=== PATIENT | female | born 1975 | race Caucasian/White ===

== ENCOUNTER → 2018-10-03 08:01 | Outpatient (CLI) | payer BC, SELFPAY ==
[2018-09-20 09:46] VITALS: BMI 43.4
--- NOTE | 2018-10-03 08:04 | BI_ITS ---
MAMMOGRAPHY - BILATERAL SCREENING REASON FOR EXAM: Female, 43 years old. Routine annual screening examination. PERTINENT HISTORY: Aunt with breast cancer. TECHNIQUE: Digital bilateral breast jose guadalupe (3D mammographic acquisition) in the CC and MLO projections. 2-D mediolateral oblique (MLO) and craniocaudad (CC) views of both breasts were obtained. CAD: Full Field Digital Mammography with Computer Added Detection was performed. COMPARISON: Comparison is made with prior study dated October 01, 2017 and August 31, 2016. FINDINGS: Breast Composition: There are scattered areas of fibroglandular density. There are no dominant masses or suspicious calcifications. Stable benign appearing bilateral axillary lymph nodes. No other significant abnormalities are identified. There has been no significant change since the prior study. BI/SCREENING MAMM (CAD), BILAT IMPRESSION: Stable bilateral screening mammogram. Yearly follow-up mammogram recommended. (A) ASSESSMENT CATEGORY: BIRADS Category 2: Benign. A letter regarding these results will be sent to the patient by the facility within 30 days. Approximately 10% of breast cancers are not detected by mammography. A normal mammogram should not delay biopsy of a clinically suspicious abnormality. [id number] Electronically Signed: Yehuda Michaels MD at 13:09 EST Tel [phone], Service support ,
--- OUTSIDE RECORDS SUMMARY | 2018-11-26 07:43 | XMS RPT_ITS ---
:1975 Author Organization [facility] Care Team Providers Name Role Phone ANTWON HIRSCH Attending Unavailable ANTWON HIRSCH Referring Unavailable Joanie Avelar Attending Unavailable Silas Andino Referring Unavailable Joanie Avelar Attending Unavailable Joanie Avelar Referring Unavailable Silas Andino Primary Care Unavailable PROBLEMS PROBLEMS DATE TYPE CONDITION / CODE ATTENDING STATUS SOURCE 04/28/2018 Active Essential NA Active [facility] (primary) Main [place] hypertension / Repository I10(ICD-10) PROCEDURES PROCEDURES No Procedure Records FoundRESULTS RESULTS SCREENING MAMM (CAD), Observed: 10/03/2018 Status: F Source: NED BILAT 8:04 AM [facility] REPOSITORY [facility] Imaging Services [address] [place] [address] SCREENING MAMM (CAD), BILAT MR#: [id number] Acct: [id number] Name: JOVANA MINER Rep #: [id number] : 1975 F 43 From: Yehuda Michaels MD PCP: Silas Andino MD Status: REG CLI Study: SCREENING MAMM (CAD), BILAT Date of Exam: 10/03/18 Exam# [id number] Ordering Dr: Joanie Avelar MD MAMMOGRAPHY - BILATERAL SCREENING REASON FOR EXAM: Female, 43 years old. Routine annual screening examination. PERTINENT HISTORY: Aunt with breast cancer. TECHNIQUE: Digital bilateral breast jose guadalupe (3D mammographic acquisition) in the CC and MLO projections. 2-D mediolateral oblique (MLO) and craniocaudad (CC) views of both breasts were obtained. CAD: Full Field Digital Mammography with Computer Added Detection was performed. COMPARISON: Comparison is made with prior study dated October 01, 2017 and August 31, 2016. FINDINGS: Breast Composition: There are scattered areas of fibroglandular density. There are no dominant masses or suspicious calcifications. Stable benign appearing bilateral axillary lymph nodes. No other significant abnormalities are identified. There has been no significant change since the prior study. BI/SCREENING MAMM (CAD), BILAT IMPRESSION: Stable bilateral screening mammogram. Yearly follow-up mammogram recommended. (A) ASSESSMENT CATEGORY: BIRADS Category 2: Benign. A letter regarding these results will be sent to the patient by the facility within 30 days. Approximately 10% of breast cancers are not detected by mammography. A normal mammogram should not delay biopsy of a clinically suspicious abnormality. [id number] Electronically Signed: Yehuda Michaels MD at 13:09 EST Tel [phone], Service support , CC: Joanie Avelar MD; Silas Andino MD Television Newscast Director: Signed MACHINIST OFFICE VISIT Observed: 09/29/2018 Status: F Source: NED REPORT 4:55 AM [facility] Women[facility] [address] [place] [address] OFFICE VISIT Date of Service: 09/20/18 MR#: [id number] Acct: [id number] Name: JOVANA MINER Rep #: [id number] : 1975 Provider: Joanie Avelar MD Age/Sex: 43/F Location: [facility] Status: Signed Intake Vital Signs09/20/18 Height 5 ft 6 in 09/20/18 Weight: 269 lb 09/20/18 Body Mass Index (BMI) 43.4 09/20/18 Blood Pressure 160/100 H Intake Visit Reasons: ANNUAL Chief Complaint: est annual [facility] Required: No Is patient in pain?: No Allergies adhesive Allergy (Verified 09/20/18 09:47) Rash peanut Allergy (Verified 09/20/18 09:47) Hives strawberry [[place]] Allergy (Verified 09/20/18 09:47) Hives Medications hydrochlorothiazide 12.5 mg capsule 12.5 mg PO DAILY 09/20/18 [History Confirmed 09/20/18] Is last menstrual period known: Yes Last Menstral Period: 08/30/18 Post menopausal: No Patient : No : No PFSH Medical History Hypertension (Chronic) Surgical History History of delivery (Acute) Hx of cholecystectomy (Acute) Social History Smoking Status: Former smoker alcohol intake: never substance use type: does not use caffeine: Yes what type of physical activity do you participate in: walking seatbelt use: always do you feel safe at home: Yes Pregancy History 4 Elective abortions Hx Para 2 Spontaneous abortions Past Pregnancies Del. DatName GA/WeeksOutcome Route [facility] LocaProviderFOB e ht en tn Unknown 2011 Garcia nah Unknown 2013 Cat herine HPI ANNUAL: Details: JOVANA MINER is a 43 year old who presents for annual exam. Last PAP: 2017 normal History of abnormal PAP: no Last mammogram: due History of abnormal mammogram: no Colon cancer screening: na Other preventative health care screenings: per PCP Female Reproductive History Last Menstral Period: 08/30/18 Questions: Metorrhagia: No, Sexually active: Yes, Dyspareunia: No, PCB: No Menopausal Symptoms: No hot flashes, No night sweats, No weight change, No mood changes, No difficulty concentrating, No sleep problems, No change in libido ROS Const Constitutional: Reports as per HPI; denies poor appetite, fatigue, increased appetite, weight gain, weight loss or night sweats Cardio Card: Denies chest pain Resp Resp: Denies dyspnea or cough GI GI: Reports as per HPI; denies bloating, abdominal pain, constipation, vomiting or nausea : Reports as per HPI and other; denies blood in urine, vaginal odor, vaginal itching, vaginal dryness, vaginal discharge, urinary urgency, urinary incontinence, urinary frequency, pelvic pain, painful urination, difficulty urinating, prolapse symptoms, nipple discharge or hot flashes Skin Skin/Breast: Denies breast pain, breast skin changes, nipple discharge, breast lump or changing lesions Psych Psych: Denies difficulty concentrating or change in sex drive Exam Const General: cooperative, healthy appearing, comfortable, no acute distress, well developed, well groomed HENOH Head: normal to inspection, normocephalic Ears: hearing grossly normal bilaterally, external ears normal Nose: external nose normal Face and sinus: normal facial exam Neck Neck: normal visual inspection, full ROM, no lymphadenopathy Thyroid: thyroid normal Chest Chest palpation AND inspection: normal inspection of the chest Breast inspection: normal inspection of the breasts, normal inspection of the axillae Breast palpation: normal palpation of the breasts, normal palpation of the axillae, no axillary lymphadenopathy Resp Effort AND Inspection: normal respiratory effort GI Inspection: normal to inspection, non-distended Palpation: no guarding, soft, no hepatosplenomegaly General: bladder normal to palpation External Female Exam: normal external appearance, normal appearance of the urethra, no lesions Urethra: normal appearance of the urethra, normal palpation Speculum Exam - Vagina: normal appearance of the vagina, normal vaginal discharge Speculum Exam - Cervix: normal appearance of the cervix, no cervical discharge, no lesions, nontender Bimanual Exam- Vagina AND Uterus: No cervical tenderness, normal bimanual exam, uterine size normal, bladder normal to palpation, uterine mobility normal, uterine consistency normal, uterus non-tender, no cervical motion tenderness Bimanual Exam- Adnexa, other: normal adnexae, no adnexal masses, adnexae non-tender Skin General: no rashes or lesions noted Neuro General: alert, moves all extremities, no focal motor deficits Extrem General: no pedal edema, normal to inspection Psych Appearance: grossly normal Mental Status: mental status grossly normal Affect: normal affect Speech and Movement: speech and movement normal Attitude: cooperative Assessment AND Plan Problems 1. Encounter for gynecological examination without abnormal finding Z01.419 Plan Cervical cancer screening: pap hpv up to date 2016 Breast cancer screening: mamm ordered other health maintenance examination reviewed and orders placed if needed. Encouraged maintenance of a healthy weight and active lifestyle and handout given. Annual exam handout including recommendations for good health guidelines, Calcium/vitamin D recommendations, and basic screening information given. Problem list up to date, see problem list details for any additional plan information. Follow up in one year for annual health maintenance exam or sooner if needed. Coding Level of Care Code Off vis,est,prev 40-64yrs Diagnoses Encounter for gynecological examination without abnormal finding Z01.419 Gynecological examination findings: abnormal findings ABSENT 09/29/18 0455 <Electronically signed by Joanie Avelar MD> Date Joanie Avelar MD Cosigner Signature: Date (if applicable) CC: BASIC METABOLIC PANL Collected: 04/28/2018 Status: F Source: [place] 7:39 AM [facility] REPOSITORY TYPE CODE TESTS RESULT OUT OF REFERENCE UNITS RANGE LAB GLU 74-99 mg/dL High Glucose 105 Result Comment: The [place] Diabetes Association (ADA) provides guidance for cutoff values for fasting glucose and random glucose. The ADA defines fasting as no caloric intake for at least 8 hours. Fas ting plasma glucose results between 100 to 125 mg/dL indicate increased risk for diabetes (prediabetes). Fasting plasma glucose results greater than or equal to 126 mg/dL meet the criteria for diagnosis of diabetes. In the absence of unequivocal hyperglycemia, results should be confirmed by repeat testing. In a patient with classic symptoms of hyperglycemia or hyperglycemic crisis, random plasma glucose results greater than or equal to 200 mg/dL meet the criteria for diagnosis of diabetes. Reference: Standards of Medical Care in Diabetes 2016, [place] Diabetes Association. Diabetes Care. 2016.39(Suppl 1). LAB BUN 7-21 mg/dL BUN 13 LAB CRET 0.58-0.96 mg/dL Creatinine 0.84 LAB NA 136-144 mmol/L Sodium 140 LAB K 3.7-5.1 mmol/L Potassium 4.0 LAB CL 97-105 mmol/L Chloride 101 LAB CO2 22-30 mmol/L CO2 28 LAB AGAP 9-18 mmol/L Anion Gap 11 LAB CA 8.5-10.2 mg/dL Calcium, Total 9.4 LAB GFRAA eGFR- Amer. >60 LAB GFRNAA . eGFR-All Other Races >60 Result Comment: eGFR (Estimated GFR) Units of measure: mL/min/1.73 meters squared eGFR is derived from the reexpressed MDRD Study equation using the following parameters: serum creatinine, age, gender and race. The creatinine assay has been calibrated to be traceable to IDMS. An eGFR <60 mL/min/1.73m2 for >3 months is consistent with chronic kidney disease. Refer to KDOQI guidelines for clinical interpretation. In patients with unstable renal function, e.g. those with acute kidney injury, the eGFR may not accurately reflect actual GFR. Performed By: #### BMP #### [facility] Laboratories [address] [address] PROGRESS Observed: 04/18/2018 Status: COMPLETED Source: [place] 5:36 PM [facility] REPOSITORY HNO ID: [id number] Author: Antwon Hirsch Service: (none) Author Type: Physician Type: Progress Notes Filed: 04/18/2018 9:26 PM Note Text: Chief Complaint Patient presents with: Blood Pressure: has been elevated HPI Jovana Miner is a 42 year old female who presents here today for Above Complaints.. Patient was last in the office 03/05/2018 and BP was 100/70. Was at [facility] for a PE on 04/15/2018 and BP there was 160/96. Since then she took her BP over the weekend with a home cuff and got: 142/95, 137/103, 133/106 today. Over the week end got: 139/91, 123/91, 138/92, 130/93 and 140/99. There has been some new stressors in her life. Mom is to have kidney surgery to have a stag horn renal stone removed. [id number] just diagnosed with breast CA. Recently quit her job for a better opportunity. Starts her new job next Wednesday. Dad with HTN Past medical history, appointments, medications, allergies reviewed. Previous Medical History PAST MEDICAL HISTORY Diagnosis Date - Diabetes, gestational - FHx: migraine headaches - Hx gestational diabetes - Kidney stone - Varicosities Previous Surgical History PAST SURGICAL HISTORY Procedure Laterality Date - ANESTH, SECTION - DELIVERY ONLY 02/01/12 , low transverse - LAP CHOLECYSTECT/CHOLANGIOGRAPHY 03/27/11 Normal IOC - PAST SURGICAL HISTORY OF cyst removed from coccyx - PAST SURGICAL HISTORY OF wisdom teeth Family History FAMILY HISTORY Problem Relation Age of Onset - Diabetes Father - Hypertension Father - fibromyalgia [Other] [OTHER] Mother also endometriosis - COPD Maternal Grandmother - Stroke Maternal Grandfather - PARATHYROID [Other] [OTHER] Mother Patient Allergies ALLERGIES Allergen Reactions - Adhesive Rash ADHESIVE ON BANDAIDS - Peanuts Hives - [place] Hives Current Medications Current Outpatient Prescriptions on File Prior to Visit: triamcinolone acetonide (NASACORT) 55 mcg nasal inhaler Use 2 Sprays in the nose once daily as needed. No current facility-administered medications on file prior to visit. Social History Social History Marital status: Spouse name: Raj Years of education: 14 Number of children: 1 Occupational History Occupation Employer Comment [employer] Social History Main Topics Smoking status: Former Smoker Packs/day: 0.00 Years: 0.00 Quit date: 07/19/2009 Smokeless tobacco: Never Used Alcohol use: Yes Comment: occasional,NOT WHILE Drug use: No Sexual activity: Yes Partners with: Male Review of Symptoms REVIEW OF SYSTEMS RESPIRATORY: Negative for wheezing, COPD, dyspnea or shortness of breath CARDIOVASCULAR: Negative for chest pain, leg swelling, hypertension, CHF or palpitations. Has the occasional ankle swelling. NEURO: No history of yncope, paralysis, seizures or tremors. Has been having a pressure sensation like someone pushing on the top of her head. Not like her typical migraines. No vision changes. EXAM: BP 160/96 Pulse 74 Temp 36.8 ?C (98.3 ?F) (Tympanic) Resp 16 Wt 118.4 kg (261 lb) BMI 42.77 kg/m? Last 6 Encounter BP Readings: Date: BP: 04/18/2018 160/96 03/02/2018 100/70 08/10/2017 124/80 10/30/2016 132/88 10/18/2016 138/88 04/30/2016 110/72 General Appearance: Well appearing, alert, in no acute distress, well-hydrated, well nourished., Morbidly obese. Neck: Supple, no adenopathy; thyroid symmetric, normal size, no bruits. Lungs: Lungs clear to auscultation. No wheezing, rhonchi, rales. Heart: RRR without murmur, gallop, or rubs. No ectopy. Abdomen: Normal abdominal exam, Abdomen soft, non-tender. Bowel sounds normal. No masses, organomegaly. Extremities: No deformities or skin discoloration. Has mild edema in both lower legs Lt>Rt (this she says has been typical for several years now). Health Maintenance List HPV EVERY 5 YEARS due on 2004 PAP EVERY 5 YEARS due on 03/15/2017 INFLUENZA(Season Ended) due on 07/02/2018 MAMMOGRAM due on 10/01/2018 DTAP,TDAP,TD(2 - Td) due on 10/09/2023 Data reviewed A/P ASSESSMENT/PLAN: 1. Hypertension, essential - ICD9: 401.9, ICD10: I10 - suboptimal control - Will start HCTZ 12.5 mg a day - Recommended regular aerobic exercise. - Recommend home blood pressure monitoring, to bring results in on next visit - Goal of BP <130/80 Check BMP after being on the HCTZ for 7-10 days Signed Prescriptions Disp Refills Hydrochlorothiazide 12.5 mg capsule 30 capsule 5 Sig: Take 1 capsule by mouth once daily. f/u with Dr. Andino or Hung Oseguera in 4 weeks. Antwon Hirsch MD CNOV Observed: 04/18/2018 Status: COMPLETED Source: [place] 4:40 PM [facility] REPOSITORY [facility] JOVANA MINER ([id number]) 1975 F Date Time Provider Department 04/18/18 4:40 PM ANTWON HIRSCH During your visit today, we recorded the following information about you: Temperature Pulse Respiration Blood pressure 98.3 degrees 74/minute 16/minute 168/92 Weight 118.4 kg Antwon Hirsch MD 04/18/2018 9:26 PM Signed Chief Complaint Patient presents with: Blood Pressure: has been elevated HPI Jovana Miner is a 42 year old female who presents here today for Above Complaints.. Patient was last in the office 03/05/2018 and BP was 100/70. Was at [facility] for a PE on 04/15/2018 and BP there was 160/96. Since then she took her BP over the weekend with a home cuff and got: 142/95, 137/103, 133/106 today. Over the week end got: 139/91, 123/91, 138/92, 130/93 and 140/99. There has been some new stressors in her life. Mom is to have kidney surgery to have a stag horn renal stone removed. [id number] just diagnosed with breast CA. Recently quit her job for a better opportunity. Starts her new job next Wednesday. Dad with HTN Past medical history, appointments, medications, allergies reviewed. Previous Medical History PAST MEDICAL HISTORY Diagnosis Date - Diabetes, gestational - FHx: migraine headaches - Hx gestational diabetes - Kidney stone - Varicosities Previous Surgical History PAST SURGICAL HISTORY Procedure Laterality Date - ANESTH, SECTION - DELIVERY ONLY 02/01/12 , low transverse - LAP CHOLECYSTECT/CHOLANGIOGRAPHY 03/27/11 Normal IOC - PAST SURGICAL HISTORY OF cyst removed from coccyx - PAST SURGICAL HISTORY OF wisdom teeth Family History FAMILY HISTORY Problem Relation Age of Onset - Diabetes Father - Hypertension Father - fibromyalgia [Other] [OTHER] Mother also endometriosis - COPD Maternal Grandmother - Stroke Maternal Grandfather - PARATHYROID [Other] [OTHER] Mother Patient Allergies ALLERGIES Allergen Reactions - Adhesive Rash ADHESIVE ON BANDAIDS - Peanuts Hives - [place] Hives Current Medications Current Outpatient Prescriptions on File Prior to Visit: triamcinolone acetonide (NASACORT) 55 mcg nasal inhaler Use 2 Sprays in the nose once daily as needed. No current facility-administered medications on file prior to visit. Social History Social History Marital status: Spouse name: Raj Years of education: 14 Number of children: 1 Occupational History Occupation Employer Comment [employer]* [employer] Social History Main Topics Smoking status: Former Smoker Packs/day: 0.00 Years: 0.00 Quit date: 07/19/2009 Smokeless tobacco: Never Used Alcohol use: Yes Comment: occasional,NOT WHILE Drug use: No Sexual activity: Yes Partners with: Male Review of Symptoms REVIEW OF SYSTEMS RESPIRATORY: Negative for wheezing, COPD, dyspnea or shortness of breath CARDIOVASCULAR: Negative for chest pain, leg swelling, hypertension, CHF or palpitations. Has the occasional ankle swelling. NEURO: No history of yncope, paralysis, seizures or tremors. Has been having a pressure sensation like someone pushing on the top of her head. Not like her typical migraines. No vision changes. EXAM: BP 160/96 Pulse 74 Temp 36.8 ?C (98.3 ?F) (Tympanic) Resp 16 Wt 118.4 kg (261 lb) BMI 42.77 kg/m? Last 6 Encounter BP Readings: Date: BP: 04/18/2018 160/96 03/02/2018 100/70 08/10/2017 124/80 10/30/2016 132/88 10/18/2016 138/88 04/30/2016 110/72 General Appearance: Well appearing, alert, in no acute distress, well-hydrated, well nourished., Morbidly obese. Neck: Supple, no adenopathy; thyroid symmetric, normal size, no bruits. Lungs: Lungs clear to auscultation. No wheezing, rhonchi, rales. Heart: RRR without murmur, gallop, or rubs. No ectopy. Abdomen: Normal abdominal exam, Abdomen soft, non-tender. Bowel sounds normal. No masses, organomegaly. Extremities: No deformities or skin discoloration. Has mild edema in both lower legs Lt>Rt (this she says has been typical for several years now). Health Maintenance List HPV EVERY 5 YEARS due on 2004 PAP EVERY 5 YEARS due on 03/15/2017 INFLUENZA(Season Ended) due on 07/02/2018 MAMMOGRAM due on 10/01/2018 DTAP,TDAP,TD(2 - Td) due on 10/09/2023 Data reviewed A/P ASSESSMENT/PLAN: 1. Hypertension, essential - ICD9: 401.9, ICD10: I10 - suboptimal control - Will start HCTZ 12.5 mg a day - Recommended regular aerobic exercise. - Recommend home blood pressure monitoring, to bring results in on next visit - Goal of BP <130/80 Check BMP after being on the HCTZ for 7-10 days Signed Prescriptions Disp Refills Hydrochlorothiazide 12.5 mg capsule 30 capsule 5 Sig: Take 1 capsule by mouth once daily. f/u with Dr. Andino or Hung Oseguera in 4 weeks. MD Antwon Skelton MD 04/18/2018 5:54 PM Signed When you have been on the water pil for 7-10 days come to lab and get none fasting lab drawn. Allergies As of Date: 04/18/2018 Noted Allergy Reaction ADHESIVE 06/02/2011 2 - Rash Comments: ADHESIVE ON BANDAIDS PEANUTS 10/15/2010 4 - Hives STRAWBERRY 10/15/2010 4 - Hives Date Reviewed: 04/18/2018 Reviewed by: Antwon Hirsch - Fully Assessed Reason for Visit: Blood Pressure [15] Cmt: has been elevated Primary Visit Diagnosis:Hypertension, essential [I10] Order(s):Hydrochlorothiazide 12.5 mg capsuleTake 1 capsule by mouth once daily.Disp: 30 capsuleRfl: 5 BASIC METABOLIC PNL [SQBMP] Order #: [id number] FUTURE Prescriptions as of 04/18/2018 Sig: TRIAMCINOLONE ACETONIDE 55 MC* Use 2 Sprays in the nose once* HYDROCHLOROTHIAZIDE 12.5 MG C* Take 1 capsule by mouth once * Problem List As Of Date 04/18/2018 Noted Resolved Unspecified disorder of female genital organs [*INVALID FOR* Obesity, unspecified [E66.9] INVALID FOR* Biliary colic [K80.50] INVALID FOR*10/30/2016 Recurrent loss, antepartum condition *INVALID FOR* More... ADVANCED MATERNAL AGE:MULTIPARA[659.63] [O09.52*INVALID FOR*02/08/2012 Unspecified high-risk [O09.90] INVALID FOR*02/08/2012 Advanced maternal age (AMA) in [IMO00*INVALID FOR*10/30/2016 More... History of [Z98.891] INVALID FOR* More... History of kidney stones [Z87.442] INVALID FOR* More... History of gestational diabetes in prior pregna*INVALID FOR* More... History of varicose veins [Z86.79] INVALID FOR* More... Bilateral kidney stones [N20.0] INVALID FOR* Gestational diabetes [O24.419] INVALID FOR*10/30/2016 Migraine without status migrainosus, not intrac*INVALID FOR* Other instructions from your clinician: When you have been on the water pil for 7-10 days come to lab and get none fasting lab drawn. Prescriptions ordered this encounter Disp Refills Start End HYDROCHLOROTHIAZIDE 12.5 MG CAPSULE 30 c* 5 04/18/2018 Route: ORAL Sig: Take 1 capsule by mouth once daily. Disposition: Return in about 4 weeks (around 05/16/2018) for HTN f/u with Dr. Andino or Hung. Follow-up and Disposition History Recorded Encounter Status:Closed by ANTWON HIRSCH on 04/18/18 PROGRESS Observed: 03/02/2018 Status: COMPLETED Source: [place] 8:13 AM [facility] [place] REPOSITORY O ID: [id number] Author: Dylan Srinivasan Service: (none) Author Type: Physician Type: Progress Notes Filed: 03/02/2018 8:47 AM Note Text: Patient presents with: Sinus Problem: sinus pressure, chest congestion x 10 days HPI: Feeling sick for 10 days. Positive symptoms: Sinus pressure, glands hurt, green rhinorrhea, Post nasal drainage, fatigue, achy, chest congestion without much cough Negative symptoms: Fever, Chills, OTC: nasacort PAST MEDICAL HISTORY Diagnosis Date - Diabetes, gestational - FHx: migraine headaches - Hx gestational diabetes - Kidney stone - Varicosities MEDICATIONS: Current Outpatient Prescriptions: triamcinolone acetonide (NASACORT) 55 mcg nasal inhaler Use 2 Sprays in the nose once daily as needed. No current facility-administered medications for this visit. ALLERGIES: ALLERGIES Allergen Reactions - Adhesive Rash ADHESIVE ON BANDAIDS - Peanuts Hives - [place] Hives VITALS: BP 100/70 Pulse 90 Temp 36.6 ?C (97.8 ?F) (Tympanic) Resp 16 SpO2 98% PHYSICAL EXAM: GEN: pleasant, mildly ill appearing HEENT: PERRL, EOMI, conjunctiva clear Ears: canals clear, TMs without erythema, bulge, or effusion Sinuses: pressure over sinuses Throat: moist mucous membranes, mild erythema, no exudate Neck: supple, no thyromegaly, no lymphadenopathy HEART: regular rate and rhythm, no murmurs LUNGS: clear to auscultation, no wheezes or crackles, no increased WOB ASSESSMENT/PLAN: 1. Acute non-recurrent sinusitis, unspecified location - ICD9: 461.9, ICD10: J01.90 Discussed diagnosis and supportive treatment of sinusitis symptoms. Continue nasacort and add claritin for possible allergies. Start - AMOXICILLIN 875 MG TABLET Dylan Srinivasan MD CNOV Observed: 03/02/2018 Status: COMPLETED Source: [place] 8:00 AM [facility] REPOSITORY [facility]OVA[facility] MIN[facility] ([id number]) 1975 F Date Time Provider Department 03/02/18 8:00 AM DYLAN SRINIVASAN [facility] During your visit today, we recorded the following information about you: Temperature Pulse Respiration Blood pressure 97.8 degrees 90/minute 16/minute 100/70 Dylan Srinivasan MD 03/02/2018 8:47 AM Signed Patient presents with: Sinus Problem: sinus pressure, chest congestion x 10 days HPI: Feeling sick for 10 days. Positive symptoms: Sinus pressure, glands hurt, green rhinorrhea, Post nasal drainage, fatigue, achy, chest congestion without much cough Negative symptoms: Fever, Chills, OTC: nasacort PAST MEDICAL HISTORY Diagnosis Date - Diabetes, gestational - FHx: migraine headaches - Hx gestational diabetes - Kidney stone - Varicosities MEDICATIONS: Current Outpatient Prescriptions: triamcinolone acetonide (NASACORT) 55 mcg nasal inhaler Use 2 Sprays in the nose once daily as needed. No current facility-administered medications for this visit. ALLERGIES: ALLERGIES Allergen Reactions - Adhesive Rash ADHESIVE ON BANDAIDS - Peanuts Hives - [place] Hives VITALS: BP 100/70 Pulse 90 Temp 36.6 ?C (97.8 ?F) (Tympanic) Resp 16 SpO2 98% PHYSICAL EXAM: GEN: pleasant, mildly ill appearing HEENT: PERRL, EOMI, conjunctiva clear Ears: canals clear, TMs without erythema, bulge, or effusion Sinuses: pressure over sinuses Throat: moist mucous membranes, mild erythema, no exudate Neck: supple, no thyromegaly, no lymphadenopathy HEART: regular rate and rhythm, no murmurs LUNGS: clear to auscultation, no wheezes or crackles, no increased WOB ASSESSMENT/PLAN: 1. Acute non-recurrent sinusitis, unspecified location - ICD9: 461.9, ICD10: J01.90 Discussed diagnosis and supportive treatment of sinusitis symptoms. Continue nasacort and add claritin for possible allergies. Start - AMOXICILLIN 875 MG TABLET Dylan Srinivasan MD Referring Provider: SELF [200] Allergies As of Date: 03/02/2018 Noted Allergy Reaction ADHESIVE 06/02/2011 2 - Rash Comments: ADHESIVE ON BANDAIDS PEANUTS 10/15/2010 4 - Hives STRAWBERRY 10/15/2010 4 - Hives Date Reviewed: 03/02/2018 Reviewed by: Bhanu Lizarraga Ma - Fully Assessed Reason for Visit: Sinus Problem [99] Cmt: sinus pressure, chest congestion x 10 days Primary Visit Diagnosis:Acute non-recurrent sinusitis, unspecified location [J01.90] Order(s):triamcinolone acetonide (NASACORT) 55 mcg nasal inhalerUse 2 Sprays in the nose once daily as needed.Disp: Rfl: amoxicillin (AMOXIL) 875 mg tabletTake 1 tablet by mouth twice daily for 7 days.Disp: 14 tabletRfl: 0 Prescriptions as of 03/02/2018 Sig: TRIAMCINOLONE ACETONIDE 55 MC* Use 2 Sprays in the nose once* AMOXICILLIN 875 MG TABLET Take 1 tablet by mouth twice * Medication notes this encounter FLUTICASONE 50 MCG/ACTUATION NASAL SPRAY,SUSPENSION >> Bhanu Lizarraga Ma 03/02/2018 8:02 AM >> BHANU LIZARRAGA MA WedMarch 02, 2018 8:02 AM duplicate Problem List As Of Date 03/02/2018 Noted Resolved Unspecified disorder of female genital organs [*INVALID FOR* Obesity, unspecified [E66.9] INVALID FOR* Biliary colic [K80.50] INVALID FOR*10/30/2016 Recurrent loss, antepartum condition *INVALID FOR* More... ADVANCED MATERNAL AGE:MULTIPARA[659.63] [O09.52*INVALID FOR*02/08/2012 Unspecified high-risk [O09.90] INVALID FOR*02/08/2012 Advanced maternal age (AMA) in [IMO00*INVALID FOR*10/30/2016 More... History of [Z98.891] INVALID FOR* More... History of kidney stones [Z87.442] INVALID FOR* More... History of gestational diabetes in prior pregna*INVALID FOR* More... History of varicose veins [Z86.79] INVALID FOR* More... Bilateral kidney stones [N20.0] INVALID FOR* Gestational diabetes [O24.419] INVALID FOR*10/30/2016 Migraine without status migrainosus, not intrac*INVALID FOR* Prescriptions ordered this encounter Disp Refills Start End TRIAMCINOLONE ACETONIDE 55 MCG NASAL* 03/02/2018 Class: OTC Route: NASAL Sig: Use 2 Sprays in the nose once daily as needed. AMOXICILLIN 875 MG TABLET 14 t* 0 03/02/2018 03/09/2018 Route: ORAL Sig: Take 1 tablet by mouth twice daily for 7 days. Medications Discontinued During This Encounter amitriptyline (ELAVIL) 10 mg tablet 30 t* 5 10/30/2016 03/02/2018 Class: Print RX Route: ORAL Sig: Take 1 tablet by mouth daily at bedtime. Patient not taking: Reported on 03/02/2018 Disc: Reason for discontinue is not on file. fluticasone (FLONASE) 50 mcg/actuati* 16 g 2 10/18/2016 03/02/2018 Route: EACH NOSTRIL Sig: Use 1 [place] in each nostril once daily. Disc: Reason for discontinue is not on file. fluticasone (FLONASE) 50 mcg/actuati* 1 Mickey* 0 07/02/2017 03/02/2018 Route: EACH NOSTRIL Sig: Use 1 [place] in each nostril daily at bedtime. Disc: Reason for discontinue is not on file. Encounter Status:Closed by DYLAN SRINIVASAN MD on 03/02/18 ALLERGIES ALLERGIES DATE TYPE / CODE NAME / CODE REACTION SEVERITY SOURCE 09/20/2018 Drug peanut/[id number] Hives Unknown Ned Allergy/416 (RXNORM) Formerly [facility] 588522([facility] ED CT) Repository 09/20/2018 Drug adhesive/[id number] Rash Unknown Ned Allergy/416 45(RXNORM) Formerly [facility] 399013([facility] ED CT) Repository 09/20/2018 Drug strawberry/[id number] Hives Unknown Ned Allergy/416 9637(RXNORM) Formerly [facility] 280054([facility] ED CT) Repository 06/02/2011 DRUG ADHESIVE RASH [facility] INGREDI/[address] [place] 676041(SN Repository ED CT) 10/15/2010 Food/[id number] PEANUTS HIVES [facility] 000(SNOMED [address] [place] [address]) Repository 10/15/2010 DRUG STRAWBERRY HIVES [facility] INGREDI/419 [facility] 649869(SN Repository ED CT) ENCOUNTERS ENCOUNTERS ADMIT/DISCHARGE ACCOUNT ADMITTING ENCOUNTER LOCATION SOURCE NUMBER CLASS 10/03/2018 [id number] Ambulatory [facility] ing:OPBI Repository 09/20/2018/09/20/20 [id number] Ambulatory BMSBuilding:Renata Marino [address] Repository 04/28/2018/04/28/20 [id number] Ambulatory [address] Repository 04/18/2018/04/19/20 [id number] Ambulatory [address] Repository 03/02/2018/03/03/20 [id number] Ambulatory [address] Repository PAYERS PAYERS ENCOUNTER GUARANTOR PAYER SUBSCRIBER SOURCE 10/03/2018 JOVANA Covarr[facility]oster [id number] Insurance:ANTHEMPolic ASHLEYB: Karissa DSOUZA y [place]: [id number] [id number] Repository [address]Wzc: ([phone]) Date:5983-99-73DO [phone] () [id number], [place] [address]YN: 10/03/2018 Secondary NOT GIVENUNK Shock Insurance:SELF PAY [facility] Number: Effective Repository Date:2018-06-29 09/20/2018 JOVANA [facility] Raj Marino [id number] Insurance:NEIL Leal: [facility] [id number]: Repository 23679Ypm: [phone] [id number] [phone] () Date:3763-54-13[address], [place] [address]JK: 09/20/2018 Secondary NOT GIVENUNK Ned Insurance:SELF PAY [facility] Number: Effective Repository Date:2018-08-18
--- OUTSIDE RECORDS SUMMARY | 2018-11-26 07:43 | XMS RPT_ITS | Clinical Summary ---
:1975 Author Organization [facility], [facility] Address [address] [place] [address] [place] [address] Phone Care Team Providers Name Role Phone Joanie Avelar MD Unavailable Conditions or Problems Problem Name Problem Onset Status Entry Provider Comment Standard Annotate Code Date Date Description Screening 41345420 Active Joanie Fitzpatrick Screening mammogram for (SNOMED 06/03 06/06 Marc[facility]ony mammography breast cancer CT) Screening for 153129924 Active Joanie Fitzpatrick Procedure HPV (SNOMED 06/03 06/[address]) on subject Screening for 875500204 Active Joanie Amari Screening cervical cancer (SNOMED 06/03 06/[address]) malignant neoplasm of cervix Encounter for 59560230 Active Joanie Fitzpatrick Gynecologic gynecological (SNOMED 06/03 06/[address]) (general) (routine) with abnormal findings Hair loss 505360625 Active Joanie Fitzpatrick Loss of hair (SNOMED 06/03 06/[address]) Medications Medication Instructions Start Stop Generic Name NDC Provider Date Date ALEVE 220 MG Two tablets by NAPROXEN [id number] Suzi A TABS mouth daily 8 SODIUM Andriessen Medications Administered No information available. Allergies, Adverse Reactions, Alerts Observed no known allergies at Results Date Name Value Unit Range Flag Description Office Visit: est annual HEMOCCULT not done Hemoglobin.gastrointestinal [Presence] in Stool MEDS REVIEW Done Documentation of current medications (procedure) FALLRSKASSES No Fall risk assessment MAMMOGRAM Normal Bilateral Breast Mammogram screening PAP SMEAR Normal General categories [Interpretation] of Cervical or vaginal smear or scraping by Cyto stain ORALTOBACUSE Never Tobacco smoking status NHIS SMOK STATUS Never smoker Tobacco use [facility] Lab Report: PAP I-G HPV Hi Risk ZZ-GE-unk Negative Negative GE use only - for LinkLogic import when terms are not otherwise specified Lab Report: Thyroid Stim Hormone (TSH) TSH 1.34 u[iU]/mL 0.358-3.74 thyroid stimulating hormone, serum Plan of Care Type Date Detail Pending order *TSH Pending order Mammogram, Screening, both breasts Procedures Code Procedure Name Date Entry Date 3016-3 *TSH Vital Signs Date Name Value Unit Description BMI (Body Mass Index) 39.73 kg/m2 Body Mass Index [Ratio] Body Temperature 98.3 [degF] temperature E&M BP Diastolic 84 mm[Hg] blood pressure, diastolic - 8462-4 BP Systolic 122 mm[Hg] blood pressure, systolic - 8480-6 Heart Rate 70 /min pulse rate E&M - 8867-4 Height 65 [in_us] height E&M - 8302-2 Respiratory Rate 16 /min respiratory rate E&M - 9279-1 Weight Measured 238.8 [lb_av] weight E&M - 3141-9
--- OUTSIDE RECORDS SUMMARY | 2018-11-26 07:43 | XMS RPT_ITS | Clinical Summary ---
:1975 Author Organization [facility], [facility] Address [address] [place] [address] [place] [address] Phone Care Team Providers Name Role Phone Joanie Avelar MD Unavailable Conditions or Problems Problem Name Problem Onset Status Entry Provider Comment Standard Annotate Code Date Date Description Screening 87956088 Active Joanie Fitzpatrick Screening mammogram for (SNOMED 06/03 06/06 Marc[facility] mammography breast cancer CT) Screening for 522260624 Active Joanie Fitzpatrick Procedure HPV (SNOMED 06/03 06/[address]) on subject Screening for 837958588 Active Joanie Amari Screening cervical cancer (SNOMED 06/03 06/[address]) malignant neoplasm of cervix Encounter for 52377089 Active Joanie Fitzpatrick Gynecologic gynecological (SNOMED 06/03 06/[address]) (general) (routine) with abnormal findings Hair loss 516952988 Active Joanie Fitzpatrick Loss of hair (SNOMED 06/03 06/[address]) Medications Medication Instructions Start Stop Generic Name NDC Provider Date Date ALEVE 220 MG Two tablets by NAPROXEN [id number] Suzi A TABS mouth daily 8 SODIUM [...] NHIS SMOK STATUS Never smoker Tobacco use [facility] Lab Report: PAP I-G HPV Hi Risk ZZ-GE-unk Negative Negative GE use only - for LinkLogic import when terms are not otherwise specified Plan of Care Type Date Detail Pending order *TSH Pending order Mammogram, Screening, both breasts Procedures No information available. Vital Signs Date Name Value Unit Description [...]
--- OUTSIDE RECORDS SUMMARY | 2018-11-26 07:43 | XMS RPT_ITS | Clinical Summary ---
:1975 Author Organization [facility], [facility] Address [address] [place] [address] [place] [address] Phone Care Team Providers Name Role Phone Joanie Avelar MD Unavailable Conditions or Problems Problem Name Problem Onset Status Entry Provider Comment Standard Annotate Code Date Date Description Screening 54224983 Active Joanie Fitzpatrick Screening mammogram for (SNOMED 06/03 06/06 Marc[facility] mammography breast cancer CT) Screening for 944026396 Active Joanie Fitzpatrick Procedure HPV (SNOMED 06/03 06/[address]) on subject Screening for 132001324 Active Joanie Amari Screening cervical cancer (SNOMED 06/03 06/[address]) malignant neoplasm of cervix Encounter for 42605585 Active Joanie Fitzpatrick Gynecologic gynecological (SNOMED 06/03 06/[address]) (general) (routine) with abnormal findings Hair loss 098722689 Active Joanie Fitzpatrick Loss of hair (SNOMED 06/03 06/[address]) Medications Medication Instructions Start Stop Generic Name NDC Provider Date Date ALEVE 220 MG Two tablets by NAPROXEN [id number] Suzi A TABS mouth daily 8 SODIUM [...] NHIS SMOK STATUS Never smoker Tobacco use [facility] Lab Report: PAP I-G HPV Hi [...]
--- OUTSIDE RECORDS SUMMARY | 2018-11-26 07:43 | XMS RPT_ITS | Clinical Summary ---
:1975 Author Organization [facility], [facility] Address [address] [place] [address] Phone Care Team Providers Name Role Phone Suzi Jason Unavailable Unavailable Conditions or Problems No information available. Medications Medication Instructions Start Stop Generic Name NDC Provider Date Date ALEVE 220 MG Two tablets by NAPROXEN [id number] Suzi Dunham TABS mouth daily 8 SODIUM Andriessen Medications Administered No information available. Allergies, Adverse Reactions, Alerts No information available. Results Date Name Value Unit Range Flag Description Clinical Lists Update: Preload SMOK STATUS Never smoker Tobacco use [facility] Plan of Care Type Date Detail Appointment 04:10 PM Joanie Avelar MD, [address] [facility], [address] Floor, [place], [address], Procedures No information available. Vital Signs No information available.
--- OUTSIDE RECORDS SUMMARY | 2018-11-26 07:43 | XMS RPT_ITS | Clinical Summary ---
:1975 Author Organization [facility], [facility] Address [address] [place] [address] [place] [address] Phone Care Team Providers Name Role Phone Joanie Avelar MD Unavailable Conditions or Problems Problem Name Problem Onset Status Entry Provider Comment Standard Annotate Code Date Date Description Screening 98630612 Active Joanie Fitzpatrick Screening mammogram for (SNOMED 06/03 06/06 Marc[facility] mammography breast cancer CT) Screening for 529763699 Active Joanie Fitzpatrick Procedure HPV (SNOMED 06/03 06/[address]) on subject Screening for 267647913 Active Joanie Amari Screening cervical cancer (SNOMED 06/03 06/[address]) malignant neoplasm of cervix Encounter for 51786404 Active Joanie Fitzpatrick Gynecologic gynecological (SNOMED 06/03 06/[address]io [address]) (general) (routine) with abnormal findings Hair loss 084967225 Active Joanie Fitzpatrick Loss of hair (SNOMED 06/03 06/[address]) Medications Medication Instructions Start Stop Generic Name NDC Provider Date Date ALEVE 220 MG Two tablets by NAPROXEN [id number] Suzi A TABS mouth daily 8 SODIUM [...] NHIS SMOK STATUS Never smoker Tobacco use [facility] Plan of Care Type Date Detail Pending [...]
--- OUTSIDE RECORDS SUMMARY | 2018-11-26 07:43 | XMS RPT_ITS | Clinical Summary ---
:[address] [facility], [facility] Address [address] [place] [address] [place] [address] Phone Care Team Providers Name Role Phone Joanie Avelar MD Unavailable Conditions or Problems Problem Name Problem Onset Status Entry Provider Comment Standard Annotate Code Date Date Description Screening 79878037 Active Joanie Fitzpatrick Screening mammogram for (SNOMED 06/03 06/06 [place] mammography breast cancer CT) Screening for 296232189 Active Joanie Fitzpatrick Procedure HPV (SNOMED 06/03 06/[address]) on subject Screening for 035046353 Active Joanie Amari Screening cervical cancer (SNOMED 06/03 06/[address]) malignant neoplasm of cervix Encounter for 88232533 Active Joanie Fitzpatrick Gynecologic gynecological (SNOMED 06/03 06/[address]) (general) (routine) with abnormal findings Hair loss 148162881 Active Joanie Fitzpatrick Loss of hair (SNOMED 06/03 06/[address]) Medications Medication Instructions Start Stop Generic Name NDC Provider Date Date ALEVE 220 MG Two tablets by NAPROXEN [id number] Suzi A TABS mouth daily 8 SODIUM [...] NHIS SMOK STATUS Never smoker Tobacco use [facility] Lab Report: PAP I-G HPV Hi Risk ZZ-GE-unk Negative Negative GE use only - for LinkLogic import when terms are not otherwise specified Lab Report: Thyroid Stim Hormone (TSH) TSH 1.34 u[iU]/mL 0.358-3.74 thyroid stimulating hormone, serum Plan of Care Type Date Detail Pending order *TSH Pending order Mammogram, Screening, both breasts Pending order Mammogram, Screening, both breasts Procedures [...]
== END ==
PROVIDERS: Family Provider Family Medicine; PCP Family Medicine; Referring Provider Obstetrics & Gynecology; Visit Provider Obstetrics & Gynecology
DX: Z12.31 Encounter for screening mammogram for malignant neoplasm of breast (principal)
CPT/HCPCS: 77063; 77067

== ENCOUNTER → 2019-10-04 07:10 | Outpatient (CLI) | payer BC, SELFPAY ==
[2018-09-20 09:46] VITALS: BMI 43.4
--- NOTE | 2019-10-04 07:12 | BI_ITS ---
MAMMOGRAPHY - BILATERAL SCREENING REASON FOR EXAM: Female, 44 years old. Routine annual screening examination. PERTINENT HISTORY: Aunt with breast cancer. TECHNIQUE: Digital bilateral breast karin (3D mammographic acquisition) in the CC and MLO projections. 2-D mediolateral oblique (MLO) and craniocaudad (CC) views of both breasts were obtained. CAD: Full Field Digital Mammography with Computer Added Detection was performed. COMPARISON: Comparison is made with prior study dated October 03, 2018 and October 01, 2017. FINDINGS: Breast Composition: There are scattered areas of fibroglandular density. There are no dominant masses or suspicious calcifications. Stable benign-appearing bilateral axillary lymph nodes. No other significant abnormalities are identified. There has been no significant change since the prior study. BI/SCREEN MAMM (CAD) W/KARIN BILAT IMPRESSION: Stable bilateral screening mammogram. Yearly follow-up mammogram recommended. (A) ASSESSMENT CATEGORY: BIRADS Category 2: Benign. A letter regarding these results will be sent to the patient by the facility within 30 days. Approximately 10% of breast cancers are not detected by mammography. A normal mammogram should not delay biopsy of a clinically suspicious abnormality. [id number] Electronically Signed: Yehuda Michaels, at 10:42 EST , Service support ,
== END ==
PROVIDERS: Family Provider Family Medicine; PCP Family Medicine; Referring Provider Obstetrics & Gynecology; Visit Provider Obstetrics & Gynecology
DX: Z12.31 Encounter for screening mammogram for malignant neoplasm of breast (principal); Z80.3 Family history of malignant neoplasm of breast
CPT/HCPCS: 77063; 77067

== ENCOUNTER 2020-05-28 13:00 | Outpatient (RCR) | payer BC, SELFPAY ==
[2018-09-20 09:46] VITALS: BMI 43.4
== END 2020-05-31 23:59 ==
LOC: NS 13:00
PROVIDERS: PCP Family Medicine; Visit Provider Family Medicine
DX: E66.9 Obesity, unspecified (principal)
CPT/HCPCS: 97802; 97803

== ENCOUNTER 2020-06-18 11:41 | Outpatient (RCR) | payer BC, SELFPAY ==
[2018-09-20 09:46] VITALS: BMI 43.4
== END 2020-07-01 23:59 ==
LOC: NS 11:41
PROVIDERS: PCP Family Medicine; Visit Provider Family Medicine
DX: Z71.3 Dietary counseling and surveillance (principal); E66.9 Obesity, unspecified; Z68.41 Body mass index [BMI] 40.0-44.9, adult
CPT/HCPCS: 97803

== ENCOUNTER → 2020-06-19 17:08 | Outpatient (CLI) | payer BC, SELFPAY ==
[2020-06-19 08:32] VITALS: BMI 43.4
[2020-06-25 10:44] LABS: HPV APTIMA, High Risk Negative (Negative)
== END ==
PROVIDERS: PCP Family Medicine; Referring Provider Nurse Practitioner Women's Health; Visit Provider Nurse Practitioner Women's Health
DX: Z12.4 Encounter for screening for malignant neoplasm of cervix (principal)
CPT/HCPCS: 87624; 88175; G0145

== ENCOUNTER 2020-08-06 14:55 | Outpatient (RCR) | payer BC, SELFPAY ==
[2020-06-19 08:32] VITALS: BMI 43.4
== END 2020-08-31 23:59 ==
LOC: NS 14:55
PROVIDERS: PCP Family Medicine; Visit Provider Family Medicine
DX: Z71.3 Dietary counseling and surveillance (principal); E66.9 Obesity, unspecified; Z68.41 Body mass index [BMI] 40.0-44.9, adult
CPT/HCPCS: 97803

== ENCOUNTER 2025-07-04 15:07 | Emergency (ER) | payer OTHER, SELFPAY ==
[2025-07-04] VITALS (8 sets, daily range): BP systolic 124–173; BP diastolic 49–85; PULSE 84–93; RESP 16–29; TEMP 36.8–37.1; O2SAT 94–97; BMI 38.0
--- NOTE | 2025-07-04 15:29 | EDS_ITS ---
HPI History of Present Illness Chief Complaint: Shortness of Breath PFSH PFS Medical History (Updated 07/04/25 @ 15:35 by Zack Negrete) Diabetes Hypertension Home Medications ?Medication ?Instructions ?Recorded ?Last Taken ?Type betamethasone dipropionate 0.05 % 1 applic topical SOFIA LY PRN 06/19/20 Unknown History topical cream citalopram 20 mg tablet 20 mg PO DAILY 06/19/20 Unkn own History hydrochlorothiazide 12.5 mg capsule 25 mg PO DAILY Unknown History albuterol sulfate 90 mcg/actuation 2 puff inhalation Q 4H PRN PRN 07/04/25 Unknown Rx aerosol inhaler (Ventolin HFA) Wheezing 7 days #8.5 gr ams hydroxyzine pamoate 25 mg capsule 25 mg PO QHS PRN PRN anxiety 07/04/25 Unknown History metformin 500 mg tablet 500 mg PO BID 07/04/25 Unkno wn History prednisone 50 mg tablet 50 mg PO DAILY 5 days #5 tab s 07/04/25 Unknown Rx Allergy/AdvReac Type Severity Reaction Status Date / Time adhesive Allergy Rash Verified 07/04/25 15:10 peanut Allergy Hives Verified 07/04/25 15:10 strawberry ([place]) Allergy Hives Verified 07/04/25 15:10 Surgical History (Updated 06/19/20 @ 08:42 by Cassandra Whiteside NP, [employer]) History of bilateral tubal ligation Hx of cholecystectomy History of delivery Social History (Updated 06/19/20 @ 08:43 by Cassandra Whiteside NP, [employer]) Smoking Status: Current every day smoker tobacco type: cigarettes alcohol intake: never substance use type: does not use caffeine: Yes what type of physical activity do you participate in: walking seatbelt use: always do you feel safe at home: Yes EXAM Physical Exam Const Vital Signs: 07/04/25 15:08 07/04/25 15:15 07/04/25 15:31 Temperature 98.3 F 98.2 F Temperature Source Oral Oral Pulse Rate 93 87 Respiratory Rate 20 H 18 Respiratory Effort Non-Labored Respiratory Depth Normal Respiratory Pattern Blood Pressure 173/80 H 140/85 H Blood Pressure Mean 111 103 Pulse Ox 95 96 Oxygen Delivery Method Room Air Room Air Room Air Fraction of Inspired Oxygen (FIO2) 07/04/25 15:39 07/04/25 16:15 07/04/25 16:59 Temperature 98.7 F Temperature Source Oral Pulse Rate 86 84 Respiratory Rate 21 H 17 Respiratory Effort Respiratory Depth Respiratory Pattern Normal Blood Pressure 140/73 H Blood Pressure Mean 95 Pulse Ox 94 Oxygen Delivery Method Room Air Room Air Fraction of Inspired Oxygen (FIO2) 96 07/04/25 18:07 Temperature 98.7 F Temperature Source Oral Pulse Rate 92 Respiratory Rate 16 Respiratory Effort Respiratory Depth Respiratory Pattern Blood Pressure 139/66 H Blood Pressure Mean 90 Pulse Ox 97 Oxygen Delivery Method Room Air Fraction of Inspired Oxygen (FIO2) [facility] [place] Medical decision making narrative: HISTORY OF PRESENT ILLNESS: Chief complaint: Shortness of breath 49-year-old female history of type 2 diabetes, MANDY, hypertension presents with shortness of breath. She states she has been short of breath since Wednesday (07/02/2025). History of URI. Does note runny nose, recent viral URI-like symptoms. No she has not been vaccinated for COVID or flu this year. She further states shortness of breath was worse with exertion today which prompted her visit. States she attempted to walk up first flight of stairs which typically makes her short of breath but today was much worse. Denies sick contacts. Denies lower extremity edema, orthopnea or paroxysmal nocturnal dyspnea. The patient denies recent surgery in the last 4 weeks or immobilization in the last 3 days, denies previous diagnosis of DVT or PE, hemoptysis, unilateral leg swelling or malignancy with treatment the last 6 months or palliative. No estrogen use noted. REVIEW OF SYSTEMS: Pertinent positives: Shortness of breath Pertinent negatives: As per HPI PHYSICAL EXAM: Nursing triage notes reviewed, Vital signs reviewed Constitutional: please see [facility] HENT: MMM Eyes: Pupils equal round and reactive to light, Extraocular muscles intact Neck: No stridor, no JVD, full neck ROM Lungs: Clear to auscultation, coarse breath sounds, slight wheezing noted. No increased work of breathing, no conversational dyspnea, no accessory muscle use, no nasal flaring. No respiratory distress noted Heart: Regular rate and rhythm, No murmurs, No rubs and No gallops, 2+ distal pulses (radial, femoral, posterior tibial) in all extremities Abdomen: Soft, there is no tenderness, rigidity, rebound or guarding, no obvious peritoneal signs, no palpable pulsatile abdominal masses, no auscultated abdominal bruit : No CVAT Extremities: No edema Neuro: No new focal neurological deficits, cranial nerves II through XII intact, 5/5 strength in all present extremities. Intact sensation to light touch in all present extremities, 2+ reflexes bilateral patella tendons. Skin: No rash or lesions noted MEDICAL DECISION MAKING: Chief Complaint: please see HPI External records reviewed: Reviewed prior cardiovascular testing: No recent echocardiograms, stress test or cardiac catheterization Factors affecting care: Hypertension Social determinants of health: Negative tobacco abuse History obtained from others: none Consults: none [facility] Narrative: Patient was initially hemodynamically stable, afebrile and nontoxic-appearing. Exam with coarse breath sounds, slight wheezing. No lower extremity edema or stigmata of CHF or VTE noted. I considered the following differential diagnosis: Pneumonia, viral URI, ACS, arrhythmia, anemia, PE amongst others I obtained broad lab and imaging workup to further determine if the patient was suffering from a life-threatening etiology. Initially treat the patient with breathing treatments given coarse breath sounds/wheezing. Gave small dose of steroids. ALL IMAGES (IF OBTAINED) HAVE BEEN PERSONALLY REVIEWED AND INTERPRETED BY MYSELF. EKG withNormal sinus rhythm rate of 84, normal axis, normal intervals, no STEMI, no sign of right heart strain CBC without leukocytosis, severe anemia, no thrombocytopenia. BMP without evidence of significant electrolyte abnormalities, no anion gap, no acute kidney injury. High-sensitivity troponin is negative, no evidence of myocardial ischemia BNP within normal limits I have personally reviewed the patient's chest x-ray. Chest x-ray is unremarkable for pulmonary edema, pneumothorax, pneumonia or focal cardiopulmonary abnormality. Radiologist agrees my interpretation COVID/flu/RSV also Patient ambulated here without significant hypoxia. Vital signs improved after breathing treatments and steroids. Will continue albuterol and prednisone at home. I suspect she has had reactive airway disease from a viral URI. No definitive evidence of pneumonia to suggest antibiotic therapy. Patient is appropriate for discharge home. The patient and/or family, caregivers express understanding. The patient and/or family, caregivers agrees with the plan. Shared decision making: I will have a discussion with the patient and or visitors regarding risk/benefits of further testing or admission. They will be made aware of of the risk/benefits inherent in this decision they will be given the opportunity to voice understanding. Total critical care time today provided was at least 0 minutes. This excludes separately billable procedures. Critical care time (if documented) is secondary to the patient having high probability of clinically significant/life threatening deterioration in the patient's condition which required my urgent intervention. Impression: 1. Dyspnea 2. Reactive airway disease 3. Viral URI Dispo: Discharge home This note was generated with [employer] dictation software. It may contain incorrect words, spelling, and punctuation that were not noted in review of the chart prior to signing. Lab Data Labs: Laboratory Results - last 24 hr 07/04/25 15:52 WBC 7.9 RBC 4.98 Hgb 13.7 Hct 40.8 MCV 81.9 MCH 27.5 MCHC 33.6 RDW Std Deviation 42.0 RDW Coeff of Young 14.3 Plt Count 213 MPV 8.9 Immature Gran % (Auto) 0.300 Neut % (Auto) 69.2 Lymph % (Auto) 19.6 Rooks % (Auto) 5.3 Eos % (Auto) 4.8 Baso % (Auto) 0.8 Absolute Neuts (auto) 5.4 Absolute Lymphs (auto) 1.54 Nucleated RBC % 0 Sodium 138 Potassium 3.7 Chloride 100 Carbon Dioxide 25.8 Anion Gap 13 BUN 11 Creatinine 0.72 Estim Creat Clear Calc 112.59 Est GFR (MDRD) Non-Af 102 BUN/Creatinine Ratio 15.5 Glucose 207 H Calcium 9.5 Troponin T High Sens < 6 NT pro BNP II 47 Radiography Diagnostic Testing: Clinical Impression(s) from Imaging Studies Chest X-Ray 07/04/25 15:39 IMPRESSION: No acute cardiopulmonary disease. Reading [id number] Dis[facility] Plan Triage Chief Complaint: Shortness of Breath ED Provider: Sandor Issa Dx/Rx/DC Orders Instructions: ED Bronchitis with Wheezing (Adult) Prescriptions: New albuterol sulfate [Ventolin HFA] 90 mcg/actuation HFA aerosol inhaler 2 puff inhalation Q4H PRN PRN (Reason: Wheezing) 7 Days Qty: 8.5 0RF prednisone 50 mg tablet 50 mg PO DAILY 5 Days Qty: 5 0RF No Action hydrochlorothiazide 12.5 mg capsule 25 mg PO DAILY betamethasone dipropionate 0.05 % cream 1 applic TOPICAL DAILY PRN citalopram 20 mg tablet 20 mg PO DAILY hydroxyzine pamoate 25 mg capsule 25 mg PO QHS PRN PRN (Reason: anxiety) metformin 500 mg tablet 500 mg PO BID Stand Alone Forms: ED Work / School Excuse Primary Care Provider: Silas Andino Referrals: Silas Andino MD [Primary Care Provider] - Activity Restrictions/Additional Instructions: Thank you for trusting us with your care today! Your ED evaluation yielded no signs of obvious bacterial pneumonia. Your COVID flu and RSV test was negative as well. I suspect you are suffering from a viral upper respiratory tract infection which is produced inflammation of your airways be called bronchitis. This is treated with breathing treatments such as albuterol and steroids. Please take Tylenol (2 pills, 650 mg), ibuprofen (2 pills, 400 mg) every 6 hours as needed for pain and fever control. Please return to the emergency department if your symptoms change or worsen. Please follow with your primary care physician for further outpatient evaluation and management. Print Language: [place] Disposition Disposition: Home, Self Care
--- NOTE | 2025-07-04 15:39 | EKG12_ITS ---
Test Reason : SHORTNESS OF BREATH Blood Pressure : */* mmHG Vent. Rate : 84 BPM Atrial Rate : 84 BPM P-R Int : 150 ms QRS Dur : 86 ms QT Int : 354 ms P-R-T Axes : 73 18 4 degrees QTcB Int : 418 ms Normal sinus rhythm Inferior infarct , age undetermined Abnormal ECG Confirmed by Ubaldo Mccallum ([id number]), editorial specialist URIEL WOODS ([id number]) on 07/06/2025 6:44:37 AM Referred By: Confirmed By: Ubaldo Mccallum
--- NOTE | 2025-07-04 15:39 | RAD_ITS ---
PROCEDURE: CHEST 1 VIEW (PORTABLE) 07/04/2025 REASON FOR EXAM: SHORTNESS OF BREATH TECHNIQUE: Frontal view of the chest. COMPARISON: None. FINDINGS: Lungs/Pleura: Clear. No pneumothorax or pleural effusion. Heart/Mediastinum: Normal in size. No vascular congestion. Bones/Soft tissues: No significant abnormality. RAD/Chest 1 View (Portable) IMPRESSION: No acute cardiopulmonary disease. Reading Location: [id number]
[2025-07-04 16:12] LABS: Hematocrit 40.8 % (37-47); Hemoglobin 13.7 g/dL (12.0-15.0); Immature Granulocytes Count 0.020 X10^3/uL (0.0-0.0); Mean Corp Hgb Conc 33.6 g/dL (32-36); Mean Corpuscular Volume 81.9 fL (81-99); Mean Platelet Vol. 8.9 fl (6.2-12.0); NRBC Flagged by Analyzer 0 % (0-5); Platelet Count 213 K/mm3 (150-450); RBC Distribution Width CV 14.3 % (11.6-14.6); RBC Distribution Width SD 42.0 fl (35.1-43.9); Red Blood Count 4.98 M/mm3 (4.2-5.4); White Blood Count 7.9 K/mm3 (4.4-11.0)
[2025-07-04 16:38] LABS: Anion Gap 13 (5-15); BUN 11 mg/dL (4-19); BUN/Creat Ratio 15.5 RATIO (10-20); Calcium,Total 9.5 mg/dL (7.6-11.0); Carbon Dioxide 25.8 mmol/L (21.0-32.0); Chloride 100 mmol/L (98-108); Estimated Creatinine Clearance 112.59 ml/min (50-250); Glucose 207 mg/dL (70-99); Potassium 3.7 mmol/L (3.3-5.1); Pro- Brain NATRIURETIC PEPTIDE 47 pg/mL (<=900); Troponin T High Sensitivity < 6 ng/L (<=14)
--- NOTE | 2025-07-04 16:47 | EKG12_ITS ---
Test Reason : O Blood Pressure : */* mmHG Vent. Rate : 79 BPM Atrial Rate : 79 BPM P-R Int : 152 ms QRS Dur : 78 ms QT Int : 346 ms P-R-T Axes : 76 24 1 degrees QTcB Int : 396 ms Normal sinus rhythm Normal ECG Confirmed by NICKI MENDEZ, RAHUL ([id number]), manager editorial URIEL WOODS ([id number]) on 07/06/2025 9:39:43 AM Referred By: Confirmed By: RAHUL CACERES MD
== END 2025-07-04 18:40 | disposition home or self-care (01) ==
PROVIDERS: Emergency Provider Emergency Medicine; PCP Family Medicine; Visit Provider Emergency Medicine
DX: J06.9 Acute upper respiratory infection, unspecified (principal); E11.9 Type 2 diabetes mellitus without complications; I10 Essential (primary) hypertension; G47.33 Obstructive sleep apnea (adult) (pediatric); J45.909 Unspecified asthma, uncomplicated; F17.210 Nicotine dependence, cigarettes, uncomplicated; Z79.84 Long term (current) use of oral hypoglycemic drugs; Z79.899 Other long term (current) drug therapy
CPT/HCPCS: 71045; 80048; 83880; 84484; 85025; 87631; 93005; 94640; 99284